=== PATIENT | male | born 1985 | race Caucasian/White ===

== ENCOUNTER 2016-12-19 17:12 | Emergency (ER) | payer OTHER ==
[~2016-12-19] VITALS: Ht 190.5 cm; Wt 95.2 kg
[2016-12-19] MEDS ORDERED: CRUTCH1 EACH MISC (19:51)
[2016-12-19] MEDS ORDERED: NORCO 5-325 TA1 EACH PO (19:51)
[2016-12-19] MEDS ORDERED: KNEE BRACE1 EACH MISC (19:51)
== END 2016-12-19 20:09 | disposition home or self-care (01) ==
LOC: ED 17:12
DX: S83.91XA Sprain of unspecified site of right knee, initial encounter (principal); F17.200 Nicotine dependence, unspecified, uncomplicated; W18.09XA Striking against other object with subsequent fall, initial encounter
CPT/HCPCS: 73560; 99283